=== PATIENT | male | born 1965 | race African-American/Black ===

== ENCOUNTER 2016-09-21 10:29 | Inpatient (IN) | payer OTHER ==
[2016-09-21 11:19] VITALS: BMI 24.7
--- NOTE | 2016-09-21 13:32 | HP ---
CIWA Score - CIWA Score Nausea/Vomitin-Int. Nausea w/Dry Heave Muscle Tremors: 3 Anxiety: 4-Mod. Anxious/Guarded Agitation: 3 Paroxysmal Sweats: 1-Minimal Palms Moist Orientation: 0-Oriented Tacttile Disturbances: 3-Moderate Itch/Numb/Burn Auditory Disturbances: 0-None Visual Disturbances: 0-None Headache: 0-None Present CIWA-Ar Total Score: 18 Admission ROS BHS - HPI Chief Complaint: DETOX TX FOR ALCOHOL DEPENDENCE Allergies/Adverse Reactions: Allergies Allergy/AdvReac Type Severity Reaction Status Date / Time No Known Allergies Allergy Verified 09/21/16 11:33 History of Present Illness: 50 Y/O AA/MALE WITH A HX OF ALCOHOL AND COCAINE DEPENDENCE SEEKING DETOX TX Exam Limitations: No Limitations - Ebola screening Have you traveled outside of the country in the last 21 days: No Have you had contact with anyone from an Ebola affected area: No Have you been sick,other than usual withdrawal symptoms: No - Review of Systems Constitutional: Chills, Night Sweats, Changes in sleep EENT: reports: Blurred Vision, Tearing, Dental Problems (MISSING TEETH) Respiratory: reports: Shortness of Breath (HX ASTHMA/COPD), Wheezing Cardiac: reports: Lightheadedness GI: reports: Diarrhea, Nausea, Poor Appetite, Poor Fluid Intake, Vomiting : reports: Frequency Musculoskeletal: reports: Back Pain, Joint Pain, Muscle Pain Integumentary: reports: No Symptoms Reported Neuro: reports: Headache, Tremors, Unsteady Gait, Dizziness Endocrine: reports: No Symptoms Reported Hematology: reports: No Symptoms Reported Psychiatric: reports: Orientated x3, Anxious Other Systems: Reviewed and Negative Patient History - Patient Medical History Hx Asthma: No Hx Chronic Obstructive Pulmonary Disease (COPD): Yes Hx Cardiac Disorders: No Hx Hypertension: No Hx Hypercholesterolemia: No HX Cerebrovascular Accident: No Hx Seizures: No Hx Diabetes: No Hx Gastrointestinal Disorders: No Hx Genitourinary Disorders: No Hx Sexually Transmitted Disorders: No Hx Renal Disease (ESRD): No Hx Thyroid Disease: No Hx Human Immunodeficiency Virus (HIV): No (NEGATIVE HX) Hx Hepatitis C: No Hx Depression: Yes (NO MEDS) Hx Suicide Attempt: No (DENIES) Hx Schizophrenia: No Other Medical History: PPD+ HX - Patient Surgical History Past Surgical History: No Hx Neurologic Surgery: No Hx Cataract Extraction: No Hx Cardiac Surgery: No Hx Lung Surgery: No Hx Breast Surgery: No Hx Breast Biopsy: No Hx Abdominal Surgery: No Hx Appendectomy: No Hx Cholecystectomy: No Hx Genitourinary Surgery: No Hx Orthopedic Surgery: No Anesthesia Reaction: No - PPD History Previous Implant?: Yes Documented Results: Positive w/o proof Implanted On Prior R Admission?: No Results: CXR TBD PPD to be Administered?: No - Reproductive History Patient is a Female of Child Bearing Age (11 -55 yrs old): No (MALE) - Smoking Cessation Smoking history: Current every day smoker Have you smoked in the past 12 months: Yes Aproximately how many cigarettes per day: 10 Hx Chewing Tobacco Use: No Initiated information on smoking cessation: Yes 'Breaking Loose' booklet given: 09/21/16 - Substance & Tx. History Hx Alcohol Use: Yes (BEER/VODKA) Hx Substance Use: Yes (COCAINE) Substance Use Type: Alcohol, Cocaine Hx Substance Use Treatment: Yes ([facility]) - Substances Abused Alcohol Route: Oral Frequency: Daily Amount used: 1 PINT [place]/ 6PK BEER Age of first use: 15 Date of Last Use: 09/21/16 Cocaine Route: Inhalation Frequency: Daily Amount used: 1/2 GRAM Age of first use: 28 Date of Last Use: 09/20/16 Family Disease History - Family Disease History Family Disease History: Diabetes: Mother (HTN-), Other: Mother Admission Physical Exam S - Vital Signs Vital Signs: Vital Signs - 24 hr 09/21/16 11:16 Temperature 98.5 F Pulse Rate 98 H Respiratory 18 Rate Blood Pressure 120/82 - Physical General Appearance: Yes: Moderate Distress, Irritable, Anxious HEENTM: Yes: EOMI, Normocephalic, JERRI, Pharynx Normal, Nasal Congestion Respiratory: Yes: Chest Non-Tender, Lungs Clear, Normal Breath Sounds, No Respiratory Distress Neck: Yes: Supple, Trachea in good position Breast: Yes: Breast Exam Deferred Cardiology: Yes: Regular Rhythm, Regular Rate, S1, S2 Abdominal: Yes: Normal Bowel Sounds, Non Tender, Soft Genitourinary: Yes: Other (N/C) Back: Yes: Within Normal Limits Musculoskeletal: Yes: full range of Motion, Gait Steady Extremities: Yes: Normal Range of Motion, Non-Tender Neurological: Yes: production specialist II-XII NML intact, Fully Oriented, Alert, Motor Strength 5/5 Integumentary: Yes: Dry, Warm Lymphatic: Yes: Within Normal Limits - Diagnostic (1) Alcohol dependence with uncomplicated withdrawal Current Visit: Yes Status: Acute (2) Cocaine dependence, uncomplicated Current Visit: Yes Status: Acute Cleared for Admission [facility] - Detox or Rehab [facility] Level of Care: Medically Managed Detox Regimen/Protocol: Librium [facility] Breath Alcohol Content Breath Alcohol Content: 0.046 Urine Drug Screen - Results Drug Screen Negative: No Urine Drug Screen Results: VICTORIA-Cocaine
[2016-09-21] MEDS ORDERED: chlordiazePOXIDE HCL 25 MG CAPSULE PO PRN (13:49)
[2016-09-21] MEDS ORDERED: diphenhydrAMINE HCL 50 MG CAPSULE PO PRN (13:49)
[2016-09-21] MEDS ORDERED: MAGNESIUM CITRATE 300 ML BOTTLE PO PRN (13:49)
[2016-09-21] MEDS ORDERED: MAGNESIUM HYDROX 2400MG/30ML ORAL SUSPENSION 30 ML CUP PO PRN (13:49)
[2016-09-21] MEDS ORDERED: MAG HYDROX/AL HYDROX/SIMETH 30 ML UNIT-DOSE CUP PO PRN (13:49)
[2016-09-21] MEDS ORDERED: NICOTINE POLACRILEX 2 MG GUM BUC PRN (13:49)
[2016-09-21] MEDS ORDERED: ACETAMINOPHEN 325 MG TABLET (FP) PO PRN (13:49)
[2016-09-21] MEDS ORDERED: MENTHOL/PHENOL 1 EACH UD MM PRN (13:49)
[2016-09-21] MEDS ORDERED: hydrOXYzine PAMOATE 25 MG CAPSULE (FP) PO PRN (13:49)
[2016-09-21] MEDS ORDERED: IBUPROFEN 400 MG TABLET (FP) PO PRN (13:49)
[2016-09-21] MEDS ORDERED: LOPERAMIDE HCL 2 MG CAPSULE PO PRN (13:49)
[2016-09-21] MEDS ORDERED: P-EPHED 60MG/TRIPROLIDI 2.5MG TABLET PO PRN (13:49)
[2016-09-21] MEDS ORDERED: guaiFENesin/D-METHORPHAN HB 10 ML UNIT-DOSE CUPS PO PRN (13:49)
[2016-09-21] MEDS ORDERED: chlordiazePOXIDE HCL 25 MG CAPSULE PO ONE (14:18)
[2016-09-21] MEDS: NICOTINE 14 MG/24 HOURS TOPICAL PATCH TD SCH (15:26)
--- NOTE | 2016-09-21 16:11 | EKG ---
Test Reason : Blood Pressure : / mmHG Vent. Rate : 091 BPM Atrial Rate : 091 BPM P-R Int : 166 ms QRS Dur : 092 ms QT Int : 358 ms P-R-T Axes : 077 065 052 degrees QTc Int : 440 ms NORMAL SINUS RHYTHM MINIMAL VOLTAGE CRITERIA FOR LVH, MAY BE NORMAL VARIANT BORDERLINE ECG NO PREVIOUS ECGS AVAILABLE Confirmed by YINA MEDINA MD ([id number]) on 09/21/2016 4:10:58 PM Referred By: Anastacio Ruiz Confirmed By:YINA MEDINA MD
[2016-09-21] MEDS: chlordiazePOXIDE HCL 25 MG CAPSULE PO SCH ×2 (17:10→22:24)
[2016-09-21 17:36] LABS: URINE APPEARANCE CLEAR; URINE BILIRUBIN NEGATIVE (NEGATIVE); URINE BLOOD NEGATIVE (NEGATIVE); URINE COLOR YELLOW; URINE GLUCOSE (UA) NEGATIVE (NEGATIVE); URINE KETONE TRACE (NEGATIVE); URINE LEUK ESTERASE NEGATIVE (NEGATIVE); URINE NITRITE NEGATIVE (NEGATIVE); URINE PROTEIN NEGATIVE (NEGATIVE); URINE UROBILINOGEN NEGATIVE E.U./dl (0.2-1.0)
[2016-09-21] MEDS: THIAMINE HCL 100 MG TABLET (FP) PO SCH (22:24)
[2016-09-22] MEDS: chlordiazePOXIDE HCL 25 MG CAPSULE PO SCH ×4 (06:17→22:01)
[2016-09-22 09:57] LABS: URINE APPEARANCE CLEAR; URINE BILIRUBIN NEGATIVE (NEGATIVE); URINE BLOOD NEGATIVE (NEGATIVE); URINE COLOR LTYELLOW; URINE GLUCOSE (UA) NEGATIVE (NEGATIVE); URINE KETONE NEGATIVE (NEGATIVE); URINE LEUK ESTERASE NEGATIVE (NEGATIVE); URINE NITRITE NEGATIVE (NEGATIVE); URINE PROTEIN NEGATIVE (NEGATIVE); URINE UROBILINOGEN NEGATIVE E.U./dl (0.2-1.0)
[2016-09-22 09:59] LABS: MCH 33.2 pg (25.7-33.7); MCHC 33.2 g/dl (32.0-35.9); MEAN CELL VOLUME 99.9 fl (80-96); MEAN PLT VOLUME 8.8 fl (7.5-11.1); PLATELET COUNT 261 K/MM3 (134-434); RDW 13.7 % (11.9-15.9); WHITE BLOOD COUNT 5.8 K/mm3 (4.0-10.0)
[2016-09-22] MEDS: PRENATAL VITAMINS W/ FOLIC ACID TABLET (FP) PO SCH (10:11)
[2016-09-22] MEDS: NICOTINE 14 MG/24 HOURS TOPICAL PATCH TD SCH (10:12)
--- NOTE | 2016-09-22 10:22 | PN ---
[facility] CIWA - CIWA Score Nausea/Vomitin-No Nausea/No Vomiting Muscle Tremors: 4-Moderate,w/Arms Extend Anxiety: 4-Mod. Anxious/Guarded Agitation: 4-Moderately Restless Paroxysmal Sweats: 1-Minimal Palms Moist Orientation: 0-Oriented Tacttile Disturbances: 3-Moderate Itch/Numb/Burn Auditory Disturbances: 0-None Visual Disturbances: 0-None Headache: 0-None Present CIWA-Ar Total Score: 16 BHS Progress Note (SOAP) Subjective: ANXIETY,SWEATS,TREMORS,FATIGUE. Objective: 09/22/16 10:21 Vital Signs Temperature 97.4 F L 09/22/16 09:52 Pulse Rate 98 H 09/22/16 09:52 Respiratory Rate 18 09/22/16 09:52 Blood Pressure 137/81 09/22/16 09:52 O2 Sat by Pulse Oximetry (%) Laboratory Last Values WBC 5.8 K/mm3 (4.0-10.0) 09/22/16 06:10 RBC 4.73 M/mm3 (4.00-5.60) 09/22/16 06:10 Hgb 15.7 GM/dL (11.7-16.9) 09/22/16 06:10 Hct 47.2 % (35.4-49) 09/22/16 06:10 MCV 99.9 fl (80-96) H 09/22/16 06:10 MCHC 33.2 g/dl (32.0-35.9) 09/22/16 06:10 RDW 13.7 % (11.9-15.9) 09/22/16 06:10 Plt Count 261 K/MM3 (134-434) 09/22/16 06:10 MPV 8.8 fl (7.5-11.1) 09/22/16 06:10 Urine Color Ltyellow 09/22/16 07:20 Urine Appearance Clear 09/22/16 07:20 Urine pH 5.0 (5.0-8.0) 09/22/16 07:20 Ur Specific [place] 1.027 (1.001-1.035) 09/22/16 07:20 Urine Protein Negative (NEGATIVE) 09/22/16 07:20 Urine Glucose (UA) Negative (NEGATIVE) 09/22/16 07:20 Urine Ketones Negative (NEGATIVE) 09/22/16 07:20 Urine Blood Negative (NEGATIVE) 09/22/16 07:20 Urine Nitrite Negative (NEGATIVE) 09/22/16 07:20 Urine Bilirubin Negative (NEGATIVE) 09/22/16 07:20 Urine Urobilinogen Negative E.U./dl (0.2-1.0) 09/22/16 07:20 Ur Leukocyte Esterase Negative (NEGATIVE) 09/22/16 07:20 Assessment: 09/22/16 10:22 WITHDRAWAL SX Plan: CONTINUE DETOX
[2016-09-22 10:34] LABS: ALBUMIN 4.5 g/dl (3.4-5.0); ALK PHOS 95 U/L (45-117); ANION GAP 9 (8-16); BILIRUBIN,TOTAL 0.9 mg/dL (0.2-1.0); CALCIUM 9.6 mg/dL (8.5-10.1); CO2 31 mmol/L (21-32); GLUCOSE,RANDOM 111 mg/dL (74-106); SGOT/AST 35 U/L (15-37); SGPT/ALT 29 U/L (12-78)
[2016-09-22 12:04] LABS: SICKLE CELL SCREEN NEGATIVE (NEGATIVE)
--- NOTE | 2016-09-22 16:02 | CONSULT ---
[facility] Psychiatric Consult - Data Date of interview: 09/22/16 Admission source: [facility] Identifying data: This is 50 years old male with history of no psychiatric hospitalizations intoxicated with: Alcohol, Cocaine and Nijcotine Substance Abuse History: - Smoking Cessation. Smoking history: Current every day smoker. Have you smoked in the past 12 months: Yes. Aproximately how many cigarettes per day: 10. Hx Chewing Tobacco Use: No. Initiated information on smoking cessation: Yes. 'Breaking Loose' booklet given: 09/21/16. - Substance & Tx. History. Hx Alcohol Use: Yes (BEER/VODKA). Hx Substance Use: Yes ( COCAINE). Substance Use Type: Alcohol, Cocaine. Hx Substance Use Treatment: Yes ([facility] - Substances Abused. Alcohol. Route: Oral. Frequency: Daily. Amount used: 1 [place]/ 6PK BEER. Age of first use: 15. Date of Last Use: 09/21/16. Cocaine. Route: Inhalation. Frequency: Daily. Amount used: 1/2 GRAM. Age of first use: 28. Date of Last Use: 09/20/16 Medical History: Denies any signifcant medcal issues Psychiatric History: Denies past psychiatric history Physical/Sexual Abuse/Trauma History: Denies Additional Comment: Observation. Detox Unit Care Protocol Mental Status Exam - Mental Status Exam Alert and Oriented to: Person Cognitive Function: Fair Patient Appearance: Unkempt Mood: Angry, Sad Affect: Flat Patient Behavior: Cooperative Speech Pattern: Appropriate Voice Loudness: Normal Thought Process: Goal Oriented Thought Disorder: Being Controlled Hallucinations: Denies Suicidal Ideation: Denies Insight/Judgement: Fair Sleep: Difficulty falling asleep Appetite: Weight gain Muscle strength/Tone: Normal Gait/Station: Normal Additional Comments: Observation. Detox Unit Care Protocol Psychiatric Findings - Problem List ([place] 1, 2,3) (1) Drug-induced mood disorder Current Visit: Yes Status: Acute (2) Alcohol dependence with uncomplicated withdrawal Current Visit: Yes Status: Acute (3) Cocaine dependence, uncomplicated Current Visit: Yes Status: Acute - Initial Treatment Plan Initial Treatment Plan: Observation. Detox Unit Care Protocol
[2016-09-22] MEDS: THIAMINE HCL 100 MG TABLET (FP) PO SCH (22:01)
[2016-09-23] MEDS: chlordiazePOXIDE HCL 25 MG CAPSULE PO SCH ×2 (05:56→10:15)
[2016-09-23] MEDS: NICOTINE 14 MG/24 HOURS TOPICAL PATCH TD SCH (10:15)
[2016-09-23] MEDS: PRENATAL VITAMINS W/ FOLIC ACID TABLET (FP) PO SCH (10:15)
--- NOTE | 2016-09-23 10:20 | PN ---
[facility] CIWA - CIWA Score Nausea/Vomitin-No Nausea/No Vomiting Muscle Tremors: 3 Anxiety: 5 Agitation: 4-Moderately Restless Paroxysmal Sweats: 1-Minimal Palms Moist Orientation: 0-Oriented Tacttile Disturbances: 3-Moderate Itch/Numb/Burn Auditory Disturbances: 0-None Visual Disturbances: 0-None Headache: 0-None Present CIWA-Ar Total Score: 16 BHS Progress Note (SOAP) Subjective: ANXIETY,SWEATS,IRRITABILITY. Objective: 09/23/16 10:19 Vital Signs Temperature 97 F L 09/23/16 06:37 Pulse Rate 69 09/23/16 06:37 Respiratory Rate 18 09/23/16 06:37 Blood Pressure 111/74 09/23/16 06:37 O2 Sat by Pulse Oximetry (%) Laboratory Last Values WBC 5.8 K/mm3 (4.0-10.0) 09/22/16 06:10 RBC 4.73 M/mm3 (4.00-5.60) 09/22/16 06:10 Hgb 15.7 GM/dL (11.7-16.9) 09/22/16 06:10 Hct 47.2 % (35.4-49) 09/22/16 06:10 MCV 99.9 fl (80-96) H 09/22/16 06:10 MCHC 33.2 g/dl (32.0-35.9) 09/22/16 06:10 RDW 13.7 % (11.9-15.9) 09/22/16 06:10 Plt Count 261 K/MM3 (134-434) 09/22/16 06:10 MPV 8.8 fl (7.5-11.1) 09/22/16 06:10 Sickle Cell Screen Negative (NEGATIVE) 09/22/16 06:10 Sodium 140 mmol/L (136-145) 09/22/16 06:10 Potassium 4.6 mmol/L (3.5-5.1) 09/22/16 06:10 Chloride 100 mmol/L (98-107) 09/22/16 06:10 Carbon Dioxide 31 mmol/L (21-32) 09/22/16 06:10 Anion Gap 9 (8-16) 09/22/16 06:10 BUN 15 mg/dL (7-18) 09/22/16 06:10 Creatinine 1.0 mg/dL (0.7-1.3) 09/22/16 06:10 Creat Clearance w eGFR > 60 (>60) 09/22/16 06:10 Random Glucose 111 mg/dL (74-106) H 09/22/16 06:10 Calcium 9.6 mg/dL (8.5-10.1) 09/22/16 06:10 Total Bilirubin 0.9 mg/dL (0.2-1.0) 09/22/16 06:10 AST 35 U/L (15-37) 09/22/16 06:10 ALT 29 U/L (12-78) 09/22/16 06:10 Alkaline Phosphatase 95 U/L (45-117) 09/22/16 06:10 Total Protein 8.0 g/dl (6.4-8.2) 09/22/16 06:10 Albumin 4.5 g/dl (3.4-5.0) 09/22/16 06:10 Urine Color Ltyellow 09/22/16 07:20 Urine Appearance Clear 09/22/16 07:20 Urine pH 5.0 (5.0-8.0) 09/22/16 07:20 Ur Specific [place] 1.027 (1.001-1.035) 09/22/16 07:20 Urine Protein Negative (NEGATIVE) 09/22/16 07:20 Urine Glucose (UA) Negative (NEGATIVE) 09/22/16 07:20 Urine Ketones Negative (NEGATIVE) 09/22/16 07:20 Urine Blood Negative (NEGATIVE) 09/22/16 07:20 Urine Nitrite Negative (NEGATIVE) 09/22/16 07:20 Urine Bilirubin Negative (NEGATIVE) 09/22/16 07:20 Urine Urobilinogen Negative E.U./dl (0.2-1.0) 09/22/16 07:20 Ur Leukocyte Esterase Negative (NEGATIVE) 09/22/16 07:20 RPR Titer Nonreactive (NONREACTIVE) 09/22/16 06:10 Hepatitis C Antibody 0.1 s/co ratio (0.0-0.9) 09/21/16 13:00 LABS NOTED. Assessment: 09/23/16 10:20 WITHDRAWAL SX Plan: CONTINUE DETOX
[2016-09-23] MEDS: chlordiazePOXIDE 5 MG CAPSULE PO SCH ×2 (17:20→22:09)
[2016-09-23] MEDS: THIAMINE HCL 100 MG TABLET (FP) PO SCH (22:09)
[2016-09-24] MEDS: chlordiazePOXIDE 5 MG CAPSULE PO SCH ×2 (06:22→10:02)
[2016-09-24] MEDS: NICOTINE 14 MG/24 HOURS TOPICAL PATCH TD SCH (10:02)
[2016-09-24] MEDS: PRENATAL VITAMINS W/ FOLIC ACID TABLET (FP) PO SCH (10:02)
--- NOTE | 2016-09-24 12:21 | PN ---
BHS Progress Note (SOAP) Subjective: Anxiety, Interrupted sleep, Restlessness Objective: 09/24/16 12:20 Vital Signs Temperature 95.7 F L 09/24/16 09:57 Pulse Rate 76 09/24/16 09:57 Respiratory Rate 18 09/24/16 09:57 Blood Pressure 125/78 09/24/16 09:57 O2 Sat by Pulse Oximetry (%) Laboratory Last Values WBC 5.8 K/mm3 (4.0-10.0) 09/22/16 06:10 RBC 4.73 M/mm3 (4.00-5.60) 09/22/16 06:10 Hgb 15.7 GM/dL (11.7-16.9) 09/22/16 06:10 Hct 47.2 % (35.4-49) 09/22/16 06:10 MCV 99.9 fl (80-96) H 09/22/16 06:10 MCHC 33.2 g/dl (32.0-35.9) 09/22/16 06:10 RDW 13.7 % (11.9-15.9) 09/22/16 06:10 Plt Count 261 K/MM3 (134-434) 09/22/16 06:10 MPV 8.8 fl (7.5-11.1) 09/22/16 06:10 Sickle Cell Screen Negative (NEGATIVE) 09/22/16 06:10 Sodium 140 mmol/L (136-145) 09/22/16 06:10 Potassium 4.6 mmol/L (3.5-5.1) 09/22/16 06:10 Chloride 100 mmol/L (98-107) 09/22/16 06:10 Carbon Dioxide 31 mmol/L (21-32) 09/22/16 06:10 Anion Gap 9 (8-16) 09/22/16 06:10 BUN 15 mg/dL (7-18) 09/22/16 06:10 Creatinine 1.0 mg/dL (0.7-1.3) 09/22/16 06:10 Creat Clearance w eGFR > 60 (>60) 09/22/16 06:10 POC Glucometer 92 UNITS (()) 09/24/16 06:21 Random Glucose 111 mg/dL (74-106) H 09/22/16 06:10 Calcium 9.6 mg/dL (8.5-10.1) 09/22/16 06:10 Total Bilirubin 0.9 mg/dL (0.2-1.0) 09/22/16 06:10 AST 35 U/L (15-37) 09/22/16 06:10 ALT 29 U/L (12-78) 09/22/16 06:10 Alkaline Phosphatase 95 U/L (45-117) 09/22/16 06:10 Total Protein 8.0 g/dl (6.4-8.2) 09/22/16 06:10 Albumin 4.5 g/dl (3.4-5.0) 09/22/16 06:10 Urine Color Ltyellow 09/22/16 07:20 Urine Appearance Clear 09/22/16 07:20 Urine pH 5.0 (5.0-8.0) 09/22/16 07:20 Ur Specific [place] 1.027 (1.001-1.035) 09/22/16 07:20 Urine Protein Negative (NEGATIVE) 09/22/16 07:20 Urine Glucose (UA) Negative (NEGATIVE) 09/22/16 07:20 Urine Ketones Negative (NEGATIVE) 09/22/16 07:20 Urine Blood Negative (NEGATIVE) 09/22/16 07:20 Urine Nitrite Negative (NEGATIVE) 09/22/16 07:20 Urine Bilirubin Negative (NEGATIVE) 09/22/16 07:20 Urine Urobilinogen Negative E.U./dl (0.2-1.0) 09/22/16 07:20 Ur Leukocyte Esterase Negative (NEGATIVE) 09/22/16 07:20 RPR Titer Nonreactive (NONREACTIVE) 09/22/16 06:10 Hepatitis C Antibody 0.1 s/co ratio (0.0-0.9) 09/21/16 13:00 labs noted Assessment: withdrawal symptoms Plan: Continue Detox
[2016-09-24] MEDS: chlordiazePOXIDE HCL 10 MG CAPSULE PO SCH ×2 (17:21→22:01)
[2016-09-24] MEDS: THIAMINE HCL 100 MG TABLET (FP) PO SCH (22:01)
[2016-09-25] MEDS: chlordiazePOXIDE HCL 10 MG CAPSULE PO SCH ×2 (06:00→10:01)
[2016-09-25 07:05] VITALS: BP 117/84; PULSE 71; TEMP 95.3
[2016-09-25] MEDS: NICOTINE 14 MG/24 HOURS TOPICAL PATCH TD SCH (10:01)
[2016-09-25] MEDS: PRENATAL VITAMINS W/ FOLIC ACID TABLET (FP) PO SCH (10:01)
--- NOTE | 2016-09-25 12:48 | DS ---
[facility] Detox Discharge Summary Admission Date: 09/21/16 Discharge Date: 09/25/16 - History Present History: Alcohol Dependence, Cocaine Dependence Pertinent Past History: COPD, + PPD - Physical Exam Results Vital Signs: Vital Signs Temperature 95.3 F L 09/25/16 07:05 Pulse Rate 71 09/25/16 07:05 Respiratory Rate 16 09/25/16 07:05 Blood Pressure 117/84 09/25/16 07:05 O2 Sat by Pulse Oximetry (%) Pertinent Admission Physical Exam Findings: Withdrawal symptoms Laboratory Tests 09/21/16 09/21/16 09/22/16 13:00 13:00 06:10 WBC 5.8 RBC 4.73 Hgb 15.7 Hct 47.2 MCV 99.9 H MCHC 33.2 RDW 13.7 Plt Count 261 MPV 8.8 Sickle Cell Screen Negative Sodium Potassium Chloride Carbon Dioxide Anion Gap BUN Creatinine Creat Clearance w eGFR POC Glucometer Random Glucose Calcium Total Bilirubin AST ALT Alkaline Phosphatase Total Protein Albumin Urine Color Yellow Urine Appearance Clear Urine pH 5.0 Ur Specific [place] 1.026 Urine Protein Negative Urine Glucose (UA) Negative Urine Ketones Trace H Urine Blood Negative Urine Nitrite Negative Urine Bilirubin Negative Urine Urobilinogen Negative Ur Leukocyte Esterase Negative RPR Titer Hepatitis C Antibody 0.1 09/22/16 09/22/16 09/22/16 06:10 06:10 07:20 WBC RBC Hgb Hct MCV MCHC RDW Plt Count MPV Sickle Cell Screen Sodium 140 Potassium 4.6 Chloride 100 Carbon Dioxide 31 Anion Gap 9 BUN 15 Creatinine 1.0 Creat Clearance w eGFR > 60 POC Glucometer Random Glucose 111 H Calcium 9.6 Total Bilirubin 0.9 AST 35 ALT 29 Alkaline Phosphatase 95 Total Protein 8.0 Albumin 4.5 Urine Color Ltyellow Urine Appearance Clear Urine pH 5.0 Ur Specific [place] 1.027 Urine Protein Negative Urine Glucose (UA) Negative Urine Ketones Negative Urine Blood Negative Urine Nitrite Negative Urine Bilirubin Negative Urine Urobilinogen Negative Ur Leukocyte Esterase Negative RPR Titer Nonreactive Hepatitis C Antibody 09/24/16 09/25/16 06:21 06:28 WBC RBC Hgb Hct MCV MCHC RDW Plt Count MPV Sickle Cell Screen Sodium Potassium Chloride Carbon Dioxide Anion Gap BUN Creatinine Creat Clearance w eGFR POC Glucometer 92 91 Random Glucose Calcium Total Bilirubin AST ALT Alkaline Phosphatase Total Protein Albumin Urine Color Urine Appearance Urine pH Ur Specific [place] Urine Protein Urine Glucose (UA) Urine Ketones Urine Blood Urine Nitrite Urine Bilirubin Urine Urobilinogen Ur Leukocyte Esterase RPR Titer Hepatitis C Antibody Labs noted - Treatment Hospital Course: Detox Protocol Followed, Detoxed Safely, Responded well, Discharged Condition Good - Medication Discharge Medications: Ambulatory Orders NK [No Known Home Medication] 09/21/16 - Diagnosis (1) Alcohol dependence with uncomplicated withdrawal Status: Acute (2) Cocaine dependence, uncomplicated Status: Chronic (3) COPD (chronic obstructive pulmonary disease) Status: Chronic Qualifiers: COPD type: unspecified COPD Qualified Code(s): J44.9 - Chronic obstructive pulmonary disease, unspecified (4) Positive PPD Status: Chronic (5) Nicotine dependence Status: Chronic (6) Depression Status: Chronic - AMA Did Patient Leave Against Medical Advice: No
== END 2016-09-25 09:00 | disposition home or self-care (01) | DRG 774 ==
LOC: YASAS 10:29 → Y3N 11:45
PROVIDERS: ADMIT Internal Medicine; ATTEND Internal Medicine
PROC: HZ2ZZZZ Detoxification Services for Substance Abuse Treatment (ICD-10-PCS; principal; 2016-09-25)
DX: F10.230 Alcohol dependence with withdrawal, uncomplicated (principal); F14.20 Cocaine dependence, uncomplicated; F17.210 Nicotine dependence, cigarettes, uncomplicated; F19.24 Other psychoactive substance dependence with psychoactive substance-induced mood disorder; F32.9 Major depressive disorder, single episode, unspecified; J44.9 Chronic obstructive pulmonary disease, unspecified; R76.11 Nonspecific reaction to tuberculin skin test without active tuberculosis; Z59.0 Homelessness
CPT/HCPCS: 36415; 71020-TC; 80053; 81003; 85027; 85660; 86593; 93005; 93010